=== PATIENT | male | born 1930 | race Caucasian/White ===

== ENCOUNTER → 2016-05-23 | Outpatient (CLI) | payer MEDICARE ==
[2016-05-23 10:02] LABS: MEAN CORPUSCULAR HGB CONC 34.8 g/dL (31.0-37.0); MEAN CORPUSCULAR VOLUME 90 FL (80-100); MEAN PLATELET VOLUME 9.4 FL (6.0-9.5); PLATELET COUNT 132 10^3uL (150-450); WHITE BLOOD COUNT 3.69 10^3uL (4.0-11.0)
[2016-05-23 10:12] LABS: MEAN CORPUSCULAR HEMOGLOBIN 31.4 PG (26.0-34.0)
[2016-05-23 10:32] LABS: BAND NEUTROPHILS % 0 % (0-6); EOSINOPHILS % 2 % (0-4); LYMPHOCYTES # 0.9 #; MONOCYTES # 0.4 #; MONOCYTES % 12 % (3-11); SEGMENTED NEUTROPHILS % 59 % (51-67); TOTAL CELLS COUNTED 100
[2016-05-23 10:33] LABS: RBC MORPH NORMAL (NORMAL)
[2016-05-23 16:22] LABS: IRON 56 ug/dL (65-175); UNBOUND IRON CONTENT 220 ug/dl (126-382)
== END ==
LOC: LAB 09:52
PROVIDERS: ATTEND Internal Medicine Hematology & Oncology
DX: D53.9 Nutritional anemia, unspecified (principal)
CPT/HCPCS: 36415; 82728; 83540; 83550; 85025

== ENCOUNTER → 2016-06-24 | Outpatient (CLI) | payer MEDICARE ==
--- NOTE | 2016-06-24 12:19 | Diagnostic Imaging Report ---
EXAMINATION: MRI brain with and without contrast dated 06/24/2016. TECHNIQUE: Multiplanar, multisequence MR imaging of the brain was performed with and without contrast. INDICATION: Cognitive deficits with recent memory loss. COMPARISONS: None. FINDINGS: The diffusion-weighted imaging demonstrates no evidence for restricted diffusion. FLAIR imaging demonstrates diffuse hyperintensity in a periventricular distribution and deep white matter consistent with chronic ischemic disease. Although the ventricles are minimally prominent, this is likely a chronic process. There is diffuse atrophy which likely contributes to the ventricular prominence. No mass, mass effect or midline shift is seen. No acute hemorrhage appreciated. Normal flow voids noted in the major vessels. The sinuses demonstrate diffuse mucosal thickening with tiny air-fluid levels in the maxillary sinuses. IMPRESSION: Chronic changes as described above including sinus disease with no acute intracranial process appreciated. Dictated by: Dictated on workstation # [id number]
== END ==
LOC: RAD 10:17
PROVIDERS: ATTEND Family Medicine
DX: R41.89 Other symptoms and signs involving cognitive functions and awareness (principal); J32.0 Chronic maxillary sinusitis
CPT/HCPCS: 70553; A9579